=== PATIENT | male | born 1950 | race Caucasian/White ===

== ENCOUNTER → 2020-03-20 08:59 | Outpatient (CLI) | payer MEDICARE, SELFPAY ==
[2020-03-20 10:19] LABS: Add Manual Diff / Slide Review NO; Basophils Absolute Auto 0 /uL (0-100); Basophils Percent Auto 0.8 % (0-2); Eosinophils Absolute Auto 200 /uL (0-450); Eosinophils Percent Auto 5.6 % (2-4); Hematocrit 42.1 % (41-53); Hemoglobin 14.4 g/dL (13.5-17.5); Lymphocytes Absolute Auto 800 /uL (1100-4500); Lymphocytes Percent Auto 20.1 % (25-40); Mean Corpuscular HGB Conc 34.1 % (30-36); Mean Corpuscular Hemoglobin 33.5 PG (26-34); Mean Corpuscular Volume 98.2 fL (80-100); Monocytes Absolute Auto 400 /uL (0-900); Monocytes Percent Auto 8.9 % (3-14); Neutrophils Absolute Auto 2600 /uL (1500-7000); Neutrophils Percent Auto 64.6 % (50-75); Platelet Count 164 X10^3/uL (150-400); Red Blood Cell Count 4.28 X10^6/uL (4.5-5.9); Red Cell Distribution Width 14.3 % (11.6-14.8); White Blood Cell Count 4.1 X10^3/uL (4.5-11.0)
[2020-03-20 10:30] LABS: Alanine Aminotransferase 28 IU/L (<50); Albumin 4.2 g/dL (3.5-5.0); Albumin Globulin Ratio 1.2 (1.0-2.8); Alkaline Phosphatase 71 U/L (38-126); Aspartate Aminotransferase 32 IU/L (17-59); BUN Creatinine Ratio 14.8 (6-22); Bilirubin Total 0.8 mg/dL (0.2-1.3); Blood Urea Nitrogen 26 mg/dL (9-20); Calcium 9.6 mg/dL (8.4-10.2); Carbon Dioxide 26 mmol/L (22-32); Chloride 105 mmol/L (98-107); Cholesterol 218 mg/dL (140-199); Estimated Glomerular Filt Rate 38.8 mL/min (>60); Globulin 3.4 g/dL (1.7-4.1); Glucose 103 mg/dL (80-110); HDL Cholesterol 43 mg/dL (40-60); HEMOLYSIS < 15 (0-50); LDL Cholesterol Calculated 149 mg/dL (<100); Potassium 4.6 mmol/L (3.4-5.1); Sodium 139 mmol/L (137-145); Total Protein 7.6 g/dL (6.3-8.2); Triglycerides 128 mg/dL (35-150)
[2020-03-20 10:33] LABS: Hemoglobin A1C% w Est Avg Glu 5.9 % (4.0-6.0)
[2020-03-20 11:00] LABS: Prostate Specific Antigen Scrn 0.889 ng/mL (0.1-4.0); TSH w/ Reflex to FT4 2.96 uIU/mL (0.47-4.68)
== END ==
LOC: LAB 09:08
PROVIDERS: Referring Provider Internal Medicine; Visit Provider Internal Medicine
DX: I25.10 Atherosclerotic heart disease of native coronary artery without angina pectoris (principal); E78.2 Mixed hyperlipidemia; I10 Essential (primary) hypertension; Z12.5 Encounter for screening for malignant neoplasm of prostate
CPT/HCPCS: 36415; 80053; 80061; 83036; 84443; 85025; G0103

== ENCOUNTER → 2020-04-10 16:59 | Outpatient (CLI) | payer MEDICARE, SELFPAY ==
--- NOTE | 2020-04-10 17:03 | DI.US.S_ITS ---
PROCEDURE: US PERIPH VENOUS LOW EXTREM RT INDICATIONS: LEG EDEMA, RIGHT TECHNIQUE: Real-time imaging, as well as color and pulse Doppler interrogation, were performed of the lower extremity deep veins from the inguinal ligament to the popliteal fossa. COMPARISON: None. FINDINGS: The common femoral, femoral and popliteal veins are normally compressible, and free of intraluminal thrombus. Color and pulse Doppler demonstrate normal phasic intraluminal flow. There is normal augmentation response to distal compression maneuver. IMPRESSION: No DVT found. Etiology of asymmetric right leg edema is not found, and follow-up by CT scanning for lymphatic obstruction may be warranted. Dictated by: Kumar Lemon M.D. on 04/11/2020 at 8:16 Approved by: Kumar Lemon M.D. on 04/11/2020 at 8:17
== END ==
PROVIDERS: Referring Provider Internal Medicine; Visit Provider Internal Medicine
DX: R60.0 Localized edema (principal)
CPT/HCPCS: 93971

== ENCOUNTER → 2020-04-25 15:55 | Outpatient (CLI) | payer MEDICARE, SELFPAY ==
--- NOTE | 2020-04-25 16:30 | DI.ECHO.S_ITS ---
Echocardiogram Report + + :Name: THERESA DIALLO Study Date: 04/25/2020 Height: 72 in : :Hospital Weight: 258 lb : : Gender: Male BSA: 2.4 m2 : :: 1950 Age: 69 yrs BP: 160/75 mmHg: :Reason For Study: HTN : : Performed By: Brennen Haas : :Referring: SOL BAUER : + + Interpretation Summary The left ventricle is mildly dilated. Left ventricular systolic function is moderately reduced. The ejection fraction is estimated to be 35-40%. There is moderate global hypokinesis of the left ventricle. The right ventricle is normal size. Right ventricular systolic function is severely reduced. Pulmonary artery pressures cannot be estimated because of the lack of a measurable TR jet velocity. Both atria are severely dilated. There is mild mitral regurgitation. The ascending aorta is mild-moderately enlarged. Procedure: A two-dimensional transthoracic echocardiogram with color flow and Doppler was performed. The study quality was technically adequate. There is no prior echocardiogram noted for this patient. The patient was in normal sinus rhythm during the exam. The patient was bradycardic with a heart rate of 50-59 beats per minute. Left Ventricle: The left ventricle is mildly dilated. There is normal left ventricular wall thickness. Left ventricular systolic function is moderately reduced. The ejection fraction is estimated to be 35-40%. There is moderate global hypokinesis of the left ventricle. Diastolic function could not be accurately assessed due to unobtainable data. Right Ventricle: The right ventricle is normal size. Right ventricular systolic function is severely reduced. Atria: Both atria are severely dilated. The interatrial septum is intact with no evidence for an atrial septal defect. Mitral Valve: The mitral valve is normal in structure and function. There is mild mitral regurgitation. Aortic Valve: The aortic valve is trileaflet. The aortic valve opens well. There is trace aortic regurgitation. Tricuspid Valve: The tricuspid valve is normal in structure and function. There is a trace or physiologic amount of tricuspid regurgitation. Pulmonary artery pressures cannot be estimated because of the lack of a measurable TR jet velocity. Pulmonic Valve: The pulmonic valve is not well seen, but is grossly normal. There is no pulmonic valvular regurgitation. There is no other significant valvular heart disease. Great Vessels: The aortic root is normal size. The ascending aorta is mildmoderately enlarged. The pulmonary artery is normal size. The IVC is of normal diameter and collapses greater than 50% with a sniff. This suggests a low right atrial pressure of 3 mm Hg. Pericardium/ Pleura There is no pericardial effusion. There is no pleural effusion. MMode/2D Measurements & Calculations LVIDd: 6.0 cm LVOT diam: 2.3 cm LVIDs: 4.9 cm Ao root diam: 3.7 cm FS: 19.4 % asc Aorta Diam: 4.0 cm EPSS: 1.8 cm IVSd: 1.1 cm LVPWd: 1.2 cm LV fields. diameter/BSA (cm/m^2): 2.5 LV sys. diameter/BSA (cm/m^2): 2.0 LA dimension: 5.4 cm RA long axis: 6.8 cm LA A2 area: 36.5 cm2 RA area: 33.2 cm2 LA A4 area: 37.0 cm2 RA vol: 138.4 ml LA length (vol): 7.6 cm RA : 58.3 ml/m2 LA vol: 150.0 ml IVC diam: 1.7 cm LA vol index: 63.2 ml/m2 TAPSE: 0.84 cm Doppler Measurements & Calculations Ao V2 max: 106.8 cm/sec LVOT Max Srinivas: 98.1 cm/sec Ao V2 mean: 84.9 cm/sec LV V1 max P.9 mmHg Ao max P.6 mmHg LV V1 VTI: 18.5 cm Ao mean P.0 mmHg KAY(I,D): 3.2 cm2 Ao V2 VTI: 23.6 cm KAY(V,D): 3.7 cm2 sev ratio: 0.79 KAY indexed to BSA (cm^2/m^2): 1.3 MV E max srinivas: 75.2 cm/sec PA V2 max: 70.6 cm/sec MV A max srinivas: 33.6 cm/sec PA V2 mean: 56.9 cm/sec MV E/A: 2.2 PA mean P.4 mmHg Med Peak E' Srinivas: 4.0 cm/sec PA pr(Accel): 17.3 mmHg E/E' med: 18.8 Lat Peak E' Srinivas: 7.7 cm/sec E/E' lat: 9.8 E/e' average: 14.3 MV dec time: 0.17 sec SV(LVGAMAL): 75.1 ml Reading Physician:05:46 PM
== END ==
PROVIDERS: PCP Internal Medicine; Referring Provider Internal Medicine; Visit Provider Internal Medicine
DX: I34.0 Nonrheumatic mitral (valve) insufficiency (principal); I77.89 Other specified disorders of arteries and arterioles; I10 Essential (primary) hypertension
CPT/HCPCS: 93306